=== PATIENT | male | born 1960 | race Caucasian/White ===

== ENCOUNTER → 2021-04-25 | Outpatient (CLI) | payer OTHER | LOC: EDSTATUS 14:09 → CATH 19:50 | DX: I25.10 Atherosclerotic heart disease of native coronary artery without angina pectoris (principal); I25.82 Chronic total occlusion of coronary artery; I10 Essential (primary) hypertension; E11.9 Type 2 diabetes mellitus without complications; Z98.61 Coronary angioplasty status; Z87.891 Personal history of nicotine dependence | CPT/HCPCS: 85347; 92920; 99152; 99153; C1725; C1769; C1887; C1894; J0461; J1644; J2250; J2370; J3010; J7040; Q9965 ==